=== PATIENT | female | born 1950 | race Caucasian/White ===

== ENCOUNTER → 2024-04-09 11:19 | Outpatient (REF) | payer OTHER, SELFPAY | LOC: HWRAD 11:19 | PROVIDERS: ATTENDING PHYSICIAN Family Medicine | DX: F17.200 Nicotine dependence, unspecified, uncomplicated (principal); I73.9 Peripheral vascular disease, unspecified | CPT/HCPCS: 76770 ==

== ENCOUNTER → 2024-05-22 06:34 | Outpatient (REF) | payer OTHER, SELFPAY | LOC: RAD 06:34 | PROVIDERS: ATTENDING PHYSICIAN Family Medicine | DX: F17.200 Nicotine dependence, unspecified, uncomplicated (principal) | CPT/HCPCS: 93922; 93925 ==

== ENCOUNTER → 2025-04-09 15:39 | Outpatient (REF) | payer OTHER, SELFPAY | LOC: RCS 15:39 | PROVIDERS: ATTENDING PHYSICIAN Family Medicine | DX: R93.1 Abnormal findings on diagnostic imaging of heart and coronary circulation (principal) | CPT/HCPCS: 93306 ==